=== PATIENT | male | born 1965 | race Caucasian/White ===

== ENCOUNTER 2018-09-23 10:29 | Day surgery (SDC) | payer OTHER ==
[2018-09-23] VITALS (13 sets, daily range): BP systolic 89–118; BP diastolic 53–80; PULSE 54–64; RESP 10–25; Ht 175.3 cm; Wt 84.7 kg
[~2018-09-23] VITALS: Ht 175.3 cm; Wt 84.7 kg
[2018-09-23] MEDS ORDERED: AMIT10TA6 PO (11:41)
[2018-09-23] MEDS ORDERED: FAMO20TA18 PO (11:41)
--- NOTE | 2018-09-23 12:18 | PREAC ---
Date/Time of Note Date/Time of Note DATE: 09/23/18 TIME: 12:16 Anesthesia Eval and Record Evaluation Time Pre-Procedure Interview DATE: 09/23/18 TIME: 12:16 Age 53 Sex male NPO: 8 hrs Preoperative diagnosis LUMBAR PAIN Planned procedure L4 TO S1 LUMBAR FACET BLOCK Past Medical History Past Medical History: Includes Cardio: HTN, PPM/AICD Endo: Diabetes Pulm: Asthma Surgery & Anesthesia Issues No known issue Meds Anticoagulation: No Beta Cora within 24 hr: Yes Reason Beta Cora not given: Pt. not on B-Cora Reported Medications Famotidine* (Famotidine*) 20 Mg Tablet, 20 MG PO DAILY, #30 TAB 09/23/18 Amitriptyline Hcl* (Amitriptyline Hcl*) 10 Mg Tablet, 10 MG PO QHS, #30 TAB 09/23/18 Meds reviewed: Yes Allergies Coded Allergies: Tetanus Vaccines and Toxoid (Verified Allergy, Mild, RASHES, 09/23/18) Allergies Reviewed: Yes Labs/Studies Labs Reviewed: Reviewed by anesthesiologist test: N/A Studies: 2D Echo Pre-procedure Exam Last vitals Vital Signs Date Temp Pulse Resp B/P (MAP) Pulse Ox O2 O2 Flow FiO2 Time Delivery Rate 09/23/18 97.7 61 18 110/72 98 Room Air 11:35 (85) Airway: Adequate mouth opening, Adequate thyromental dist Mallampati: Mallampati II Teeth: Normal Lung: Normal Heart: Normal ASA Physical Status ASA physical status: 3 Emergency: None Planned Anesthetic General/MAC: MAC Planned Pain Management Parenteral pain med Pre-operative Attestations Prior to commencing anesthesia and surgery, the patient was re-evaluated, there was verification of: *The patient's identity *The results of appropriate recent lab work and preoperative vital signs *The above evaluation not changing prior to induction *Anesthetic plan, risk benefits, alternative and complications discussed with patient/family; questions answered; patient/family understands, accepts and wishes to proceed. SOFIA ALBARADO Sep 23, 2018 12:18
[2018-09-23] MEDS ORDERED: MIDAZOLAM 1 MG/ML 2 ML INJ ONE (12:36)
[2018-09-23] MEDS ORDERED: FENTAnyl 50 MCG/ML VIAL ONE (12:36)
[2018-09-23] MEDS ORDERED: SODIUM CL BACTERIOSTATIC 30 ML INJ ONE (12:43)
[2018-09-23] MEDS ORDERED: LIDOCAINE 1% (MPF) 30 ML INJ ONE (12:43)
[2018-09-23] MEDS ORDERED: METHYLPREDNISOLONE ACET 80 MG/ML 1 ML ONE (12:44)
[2018-09-23] MEDS ORDERED: LIDOCAINE 1% (MPF) 10 ML INJ ONE (12:44)
[2018-09-23] MEDS ORDERED: IOHEXOL 300MG/ML 30 ML BTL ONE (12:44)
--- NOTE | 2018-09-23 12:59 | HPN ---
Date/Time of Note Date/Time of Note DATE: 09/23/18 TIME: 12:59 RENNY AGUILAR MD Sep 23, 2018 12:59
--- NOTE | 2018-09-23 13:02 | OPR ---
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
[2018-09-23] MEDS ORDERED: PROPOFOL 20 ML ONE (13:16)
[2018-09-23] MEDS ORDERED: LIDOCAINE 2% (SDV) 5 ML INJ ONE (13:16)
[2018-09-23] MEDS ORDERED: DIPHENHYDRAMINE 50 MG INJ IV PRN (13:30)
[2018-09-23] MEDS ORDERED: MEPERIDINE 25 MG INJ IV PRN (13:30)
[2018-09-23] MEDS ORDERED: hydrALAzine 20 MG INJ IV PRN (13:30)
[2018-09-23] MEDS ORDERED: KETOROLAC 30 MG INJ IV PRN (13:30)
[2018-09-23] MEDS ORDERED: OXYCODONE/ACETAMINOPHEN (5/325) TAB PO PRN ×2 (13:30)
[2018-09-23] MEDS ORDERED: MIDAZOLAM 1 MG/ML 2 ML INJ IV PRN (13:30)
[2018-09-23] MEDS ORDERED: ONDANSETRON 4 MG INJ IV PRN (13:30)
[2018-09-23] MEDS ORDERED: EPHEDrine 25 MG/5 ML SYG IV PRN (13:30)
[2018-09-23] MEDS ORDERED: LABETALOL HCL 20MG INJ IV PRN (13:30)
[2018-09-23] MEDS ORDERED: ALBUTEROL 0.083% (NEB) 2.5 MG/3 ML AMP HHN PRN (13:30)
[2018-09-23] MEDS ORDERED: FENTAnyl 50 MCG/ML VIAL IV PRN ×3 (13:30)
--- NOTE | 2018-09-23 13:40 | PAC ---
Date/Time of Note Date/Time of Note DATE: 09/23/18 TIME: 13:40 Post-Anesthesia Notes Post-Anesthesia Note Last documented vital signs Vital Signs Date Temp Pulse Resp B/P (MAP) Pulse Ox O2 O2 Flow FiO2 Time Delivery Rate 09/23/18 97.7 61 18 110/72 98 Room Air 1340 (85) Activity: WNL Respiratory function: WNL Cardiovascular function: WNL Mental status: Baseline Pain reasonably controlled: Yes Hydration appropriate: Yes Nausea/Vomiting absent: Yes SOFIA ALBARADO Sep 23, 2018 13:40
--- NOTE | 2018-09-23 22:08 | OPR ---
DATE OF OPERATION: 09/23/2018 ANESTHESIA: MAC. PREOPERATIVE DIAGNOSES: Lumbar spondylosis, facet syndrome, and chronic back pain. POSTOPERATIVE DIAGNOSES: Lumbar spondylosis, facet syndrome, and chronic back pain. PROCEDURES PERFORMED: 1. Lumbar facet joint steroid injection under fluoroscopy, L4-5 bilateral and L5-S1 bilateral. 2. Interpretation of intraoperative fluoroscopy x-ray. ESTIMATED BLOOD LOSS: Minimal. COMPLICATIONS: None. DESCRIPTION OF PROCEDURE: The patient was taken to the operating room and placed prone on the operat ing room table. Intravenous sedation provided by anesthesia. C-arm brought over the lumbar spine. Back prepped with ChloraPrep. A 22-gauge 3-1/2-inch spinal needles were utilized. L4-5 and L5-S1 le vels were identified under fluoroscopy with magnification. A total of 80 mg Depo-Medrol and 6 mL of 1% Xylocaine were injected into the portal sites joints. No CSF or blood was aspirated. The patient tolerated procedure well, anesthetic reversed and taken to recovery room in stable condition. Dictated By: RENNY BOSE/CRISTINA Conf#: [id number] DID#: [id number]
== END 2018-09-23 14:40 | disposition home or self-care (01) ==
LOC: SDS 10:29
PROVIDERS: ATTEND Specialist
DX: M47.896 Other spondylosis, lumbar region (principal); G89.29 Other chronic pain; M54.5 Low back pain; I10 Essential (primary) hypertension; E11.9 Type 2 diabetes mellitus without complications; J45.909 Unspecified asthma, uncomplicated; Z95.810 Presence of automatic (implantable) cardiac defibrillator
CPT/HCPCS: 62323; 72100; J1040; J2250; J3010; Q9967

== ENCOUNTER 2018-12-20 12:41 | Day surgery (SDC) | payer OTHER ==
[2018-12-20] VITALS (11 sets, daily range): BP systolic 105–123; BP diastolic 65–82; PULSE 54–78; RESP 14–21; Ht 175.3 cm; Wt 82.0 kg
[~2018-12-20] VITALS: Ht 175.3 cm; Wt 82.0 kg
[~2018-12-20 12:41] MED LIST: AMIT10TA6 PO; CEFAZOLIN 1 GM/50 ML (PMX) 50 ML IVPB ONE; FAMO20TA18 PO
[2018-12-20] MEDS ORDERED: METHYLPREDNISOLONE ACET 80 MG/ML 1 ML ONE (14:09)
[2018-12-20] MEDS ORDERED: LIDOCAINE 1% (MPF) 10 ML INJ ONE (14:09)
[2018-12-20] MEDS ORDERED: MEPERIDINE 100 MG INJ ONE (14:43)
[2018-12-20] MEDS ORDERED: OXYCODONE/ACETAMINOPHEN (10/325) TAB PO ONE (15:00)
[2018-12-20] MEDS ORDERED: PROPOFOL 20 ML ONE (15:21)
[2018-12-20] MEDS ORDERED: METOCLOPRAMIDE 10 MG INJ IV PRN (16:00)
[2018-12-20] MEDS ORDERED: OXYCODONE/ACETAMINOPHEN (5/325) TAB PO PRN ×2 (16:00)
[2018-12-20] MEDS ORDERED: DIPHENHYDRAMINE 50 MG INJ IV PRN (16:00)
[2018-12-20] MEDS ORDERED: MIDAZOLAM 1 MG/ML 2 ML INJ IV PRN (16:00)
[2018-12-20] MEDS ORDERED: MEPERIDINE 25 MG INJ IV PRN (16:00)
[2018-12-20] MEDS ORDERED: FENTAnyl 50 MCG/ML VIAL IV PRN ×3 (16:00)
[2018-12-20] MEDS ORDERED: ONDANSETRON 4 MG INJ IV PRN (16:00)
== END 2018-12-20 16:50 | disposition home or self-care (01) ==
LOC: SDS 12:41
PROVIDERS: ATTEND Specialist
DX: M47.896 Other spondylosis, lumbar region (principal); M54.16 Radiculopathy, lumbar region; M48.061 Spinal stenosis, lumbar region without neurogenic claudication
CPT/HCPCS: 62323; J0690; J1040; J2175